=== PATIENT | female | born 1955 | race Caucasian/White ===

== ENCOUNTER 2016-09-26 09:09 | Emergency (ER) | payer OTHER ==
[~2016-09-26] VITALS: Ht 162.6 cm; Wt 68.2 kg
[2016-09-26 09:11] VITALS: BP 149/82; PULSE 107; RESP 16; O2SAT 95
[2016-09-26] MEDS ORDERED: METO25TA6 PO (09:15)
--- NOTE | 2016-09-26 09:25 | ED.REPORT ---
HPI-Dyspnea / Wheezing Date of Service Sep 26, 2016 ED Provider: Baldev Engle MD This is a 60 year old female presenting to the emergency department complaining of cough that began 4 days ago. Describes productive cough with green sputum, associated with headache, rhinorrhea, sore throat, diffuse myalgias, chills and chest tightness with coughing. Denies shortness of breath, hemoptysis, lower extremity swelling, recent surgeries, prolonged periods of immobilization, abdominal pain, nausea, vomiting, diarrhea, constipation, or dysuria. Nursing Notes Stated Complaint: SOB/CHEST CONGESTION Chief Complaint: FLU/Cold Symptoms Nursing Notes Reviewed: Yes Allergies: Coded Allergies: No Known Allergies (Verified , 01/04/13) Scheduled Fluticasone Propionate (Fluticasone Propionate Nasal) 16 Gm [place].susp 1 SPRAY NS BID Metoprolol Tartrate (Metoprolol Tartrate) 25 Mg Tablet 25 MG PO BID Promethazine DM Syrup (Promethazine DM Syrup) 118 Ml Syrup 5 ML PO HS General Time Seen by MD: 09:20 Chief Complaint Cough Hx Obtained From: Patient Arrived By: Walk-in Sudden in Onset?: Yes Onset Occurred: Yesterday Symptom Duration: Since onset Severity: Current: Mild Pertinent Negative: Pt denies other symptoms Recent Healthcare: No recent doctor visit, No recent hospitalization Similar Sx Previous: No Past Medical History Past Medical History Brain aneurysm x2 Ambulatory Status Independent Review of Systems Constitutional: Reports: Chills, Denies: Fever Ears / Nose / Throat: Reports: Sore throat Respiratory: Reports: Pleuritic pain, Prod cough, green, Shortness of breath Cardiovascular: Denies: Chest pain Skin: Denies Diaphoresis Complete sys rev & neg: except as marked. Neurologic: Reports: Headache Physical Exam Initial Vital Signs Vital Signs (First) Date Time Temp Pulse Resp B/P Pulse Ox O2 Delivery O2 Flow Rate FiO2 09/26/16 09:11 37.0 107 16 149/82 95 Room Air Initial VS: Reviewed Head / Eyes: Atraumatic, Normocephalic, PERRL Abdomen / GI: Soft, Non-tender, No guarding, No rebound, No distention Extremities: Vascular intact, Neuro intact, No swelling, No tenderness Skin: Warm, Dry, No cyanosis Neurologic: Alert, Oriented, Nonfocal Psychiatric: Mood/affect normal, Behavior normal, Normal thought content General/Constitutional: Awake, Alert Neck: Atraumatic, Supple, No meningismus, Full range of motion, No swelling, Non-tender, No masses Respiratory / Chest: No respiratory distress, No wheezing Coarse breath sounds throughout Cardiovascular: Heart rate NL, Regular rhythm, Heart sounds NL, Peripheral circulation NL ENT: Mucous membranes moist, No pooling of secretions, No trismus Pharynx / Tonsils / Uvula: Positive: Pharyngeal erythema Interpretation & Diagnostics X-Ray Chest Interpretation Chest Xray Interpretation: IMPRESSION: No acute pulmonary process. Dictated by: iKki Slater M.D. on 09/26/2016 at 10:26 Approved by: Kiki Slater M.D. on 09/26/2016 at 10:26 Re-Eval/Medical Decision Med Decision/Clinical Course 60-year-old female history of smoking presenting with cough and congestion 4 days. Sore throat. Vital signs stable. Mild tachycardia. Chest x-ray clear. No chest pain. Influenza negative. No risk factors for blood clot. Likely viral URI. We will treat with supportive care as below. Return precautions given. Re-Evaluation/Progress : Time of Eval: 10:30 Re-Evaluation/Progress Note: Discussed lab and imaging results and plan for d/c, all questions addressed. Counseled Regarding: Diagnosis, Lab results, Need for follow-up, When/why to return to ED Discharge & Departure Impression: Primary Impression: Upper respiratory infection URI type: unspecified URI Qualified Code: J06.9 - Acute upper respiratory infection, unspecified Disposition: Home Discharge Condition All VS Reviewed: Yes Condition: Stable Patient Instructions: Upper Respiratory Infection (ED) Additional Instructions: Thank you for seeking care in the emergency department today. Tylenol or ibuprofen as needed for pain and fever control. Consume frequent clear fluids. Follow-up with your primary care provider. Return to the emergency department for any new or worsening symptoms Referrals: Tuyet Ramirez MD (PCP) Scribe Attestation Portions of this note were transcribed by Chirag Isabel. I, Dr. Engle personally performed the history, physical exam and medical decision-making; I reviewed and confirmed the accuracy of the information in the transcribed note. Signed by: mark Howell. 09/26/2016, 15:00. Baldev Engle MD Sep 26, 2016 09:25 CHIRAG ISABEL Sep 26, 2016 09:32
--- NOTE | 2016-09-26 10:28 | DRSVH ---
PROCEDURE: X-RAY CHEST ONE VIEW, PORTABLE ([id number]) INDICATIONS: cough TECHNIQUE: One view of the chest was acquired. COMPARISON: [facility], , CHEST 1VW (PORTABLE), 05/31/2008, 9:51. FINDINGS: Surgical changes and devices: None. Lungs and pleura: No pleural effusions or pneumothorax. Lungs are clear. Mediastinum: Mediastinal contours appear normal. Heart size is normal. Bones and chest wall: No suspicious bony lesions. Overlying soft tissues appear unremarkable. IMPRESSION: No acute pulmonary process. Dictated by: Kiki Slater M.D. on 09/26/2016 at 10:26 Approved by: Kiki Slater M.D. on 09/26/2016 at 10:26
[2016-09-26] MEDS ORDERED: FLUT16SP NS (10:36)
[2016-09-26] MEDS ORDERED: D-ME118S8 PO (10:36)
== END 2016-09-26 10:53 | disposition home or self-care (01) ==
LOC: SED 09:09
DX: J06.9 Acute upper respiratory infection, unspecified (principal); I10 Essential (primary) hypertension; Z87.891 Personal history of nicotine dependence; Z86.79 Personal history of other diseases of the circulatory system

== ENCOUNTER 2017-03-31 11:20 | Day surgery (SDC) | payer OTHER ==
[~2017-03-31] VITALS: Ht 162.6 cm; Wt 68.0 kg
[~2017-03-31 11:20] MED LIST: 0.9% Sodium Chloride 1,000 ML IV SCH; CALC600T12 PO; CLOB15CR3 TOP; FAMO20T PO; METO25TA6 PO; Sodium Chloride LOK Flush 10 mL Syringe IV PRN; fentaNYL-PF 50 mCg/mL 2 mL Inj IVPUSH PRN
[2017-03-31 11:47] VITALS: BP 153/94; PULSE 80; RESP 16; O2SAT 96
[2017-03-31] MEDS ORDERED: LISI-567 PO (11:47)
[2017-03-31 13:38] VITALS: BP 144/72; PULSE 77; RESP 12; O2SAT 96
[2017-03-31 13:49] VITALS: BP 142/74; PULSE 69; RESP 12; O2SAT 95
[2017-03-31 14:03] VITALS: BP 145/75; PULSE 68; RESP 12; O2SAT 94
--- NOTE | 2017-03-31 14:20 | ENDO ---
[address] [address] ENDOSCOPY PROCEDURE PATIENT: CAREY CRAWFORD : 1955 MR#: [id number] ADMIT: 03/31/2017 JOB ID: [id number] DATE: 03/31/2017 PRIMARY PROVIDER: Tuyet Ramirez M.D. PROCEDURE: Colonoscopy with hot snare polypectomy and cold forceps polypectomy. INSTRUMENT USED: PCF H 180 AL. SEDATION: 1. 5 mg Versed. 2. 100 mcg fentanyl. COMPLICATIONS: None identified. BOWEL PREPARATION: Poor. PROCEDURAL INFORMATION: After the risks and benefits were explained, written and verbal informed consent was obtained. The patient was brought into the endoscopy suite and placed in the left lateral decubitus position. Sedation was achieved as above. A digital rectal examination accomplished. Mild internal hemorrhoids noted. The scope was introduced into the rectum and advanced under direct visualization to the level of the cecum, as identified by the appendiceal orifice and ileocecal valve. The scope was slowly withdrawn to carefully examine the mucosa for any defects or lesions. Retroflexed views were avoided in the rectum. Multiple direct views were made through the dentate line for exclusion of pathology. The colon was decompressed. The scope removed from the patient who tolerated the procedure well. FINDINGS: There was copious amounts of adherent stool debris, mostly all throughout the right colon. This made evaluation of the appendiceal landmarks nearly impossible, but we sensed based on the pooling effect that we were in the cecum and I could see the ileocecal valve quite readily. It was impossible to clear the right colon of significant polyps. I did not see any large mass lesions. At 35 cm from the anal verge, there was a regular looking fold that may just be hyperplastic. We elected to take a couple of biopsies from this for histopathologic analysis. Otherwise, there were two colon polyps in and around the splenic flexure region that were removed with hot snare. No other significant pathology identified throughout within the limitations of bowel prep. ENDOSCOPIC DIAGNOSES: 1. Colon polyps. 2. Irregular fold at 35 cm descending colon. 3. Poor prep. RECOMMENDATIONS: 1. Await histopathology. 2. If the 35 cm descending colon biopsy is returned with adenomatous features, then an early repeat colonoscopy in the next 3-4 months with a double bowel prep would be appropriate. Alternatively, if that simply reveals hyperplastic features, then repeat colonoscopy with a double bowel prep in the next year would be appropriate.
--- NOTE | 2017-04-05 16:38 | PATH ---
SURGICAL PATHOLOGY Attending Physician:Luiza Wood CASE STATUS: Signed Out PATIENT NAME: CAREY CRAWFORD PID: [id number] : 1955 DATE COLLECTED:03/31/2017 00:00 SPECIMEN: 1: Colon, Polyp 2: Colon, Polyp CLINICAL HISTORY: 1). COLON POLYPS X2 2). SIGMOID POLYP @ 35CM X1 FINAL DIAGNOSIS: 1. Polyps x2, Polypectomies: Tubular adenoma x2. 2. Sigmoid Colon Polyp at 35 cm, Biopsies: Serrated polyp, favor hyperplastic polyp. ICD10: D12.6 GROSS DESCRIPTION: Received two formalin-filled containers, each labeled with the patient' s name. 1. Received in formalin, labeled with the patient' s name and "colon polyp", are two fragments of martinez, soft tissue ranging from 0.3 x 0.2 x 0.2 cm to 0.4 x 0.2 x 0.2 cm. The fragments are totally submitted in cassette 1A. 2. Received in formalin, labeled with the patient' s name and "sigmoid colon polyp", are two fragments of martinez, soft tissue ranging from 0.2 x 0.1 x 0.1 cm to 0.2 x 0.2 x 0.1 cm. The fragments are totally submitted in cassette 2A. [id number]) ICD-9 CODES: CPT CODES: 1: 51570 2: 89871 Electronically Signed Out Torrey Kenny MD, Ph.D. [facility], [place] [address] Technical component performed at [facility], [address], [place], [address]
== END 2017-03-31 23:59 | disposition home or self-care (01) ==
LOC: END 11:20
PROVIDERS: ATTEND Internal Medicine Gastroenterology
DX: Z12.11 Encounter for screening for malignant neoplasm of colon (principal); Z86.010 Personal history of colon polyps; Z80.0 Family history of malignant neoplasm of digestive organs; D12.3 Benign neoplasm of transverse colon; K63.5 Polyp of colon; I10 Essential (primary) hypertension; I67.1 Cerebral aneurysm, nonruptured; F17.210 Nicotine dependence, cigarettes, uncomplicated
CPT/HCPCS: 45380; 45385; 99152; 99153; J2250; J3010; J7030